=== PATIENT | female | born 1980 | race Asian ===

== ENCOUNTER 2017-04-08 12:52 | Outpatient (CLI) | payer BC ==
[~2017-04-08] VITALS: Ht 170.2 cm; Wt 81.6 kg
[~2017-04-08 12:52] MED LIST: BENZ100C8 PO; CIPRO500 MG PO; FLUT0.05 NAS
[2017-04-08 14:55] VITALS: BP 116/70; TEMP 98.4
== END 2017-04-08 14:55 | disposition home or self-care (01) ==
LOC: INF 12:52
DX: D64.89 Other specified anemias (principal)
CPT/HCPCS: 96365; Q0138

== ENCOUNTER 2017-04-16 13:07 | Outpatient (CLI) | payer BC ==
[~2017-04-16] VITALS: Ht 170.2 cm; Wt 81.6 kg
[2017-04-16 13:20] VITALS: BP 97/64; TEMP 98.5
[2017-04-16 14:35] VITALS: BP 104/64
== END 2017-04-16 14:32 | disposition home or self-care (01) ==
LOC: INF 13:07
DX: D64.89 Other specified anemias (principal)
CPT/HCPCS: 96365; Q0138